=== PATIENT | female | born 1995 | race Caucasian/White ===

== ENCOUNTER 2025-01-14 12:20 | Outpatient (CLI) | payer MEDICAID ==
[2025-01-14 13:11] LABS: Basophils # (A) 0.03 10*3/uL (0.00-0.10); Basophils % (A) 0.3 %; Eosinophils # (A) 0.27 10*3/uL (0.04-0.35); Eosinophils % (A) 2.4 %; HCT 35.8 % (37.2-46.3); HGB 12.4 g/dL (12.0-15.0); Lymphocytes # (A) 1.57 10*3/uL (0.90-5.00); Lymphocytes % (A) 13.7 %; MCH 28.9 pg (27.0-32.0); MCHC 34.6 g/dL (32.0-37.0); MCV 83.4 fL (80.0-97.0); Monocytes # (A) 0.65 10*3/uL (0.20-1.00); Monocytes % (A) 5.7 %; Neutrophils # (A) 8.86 10*3/uL (1.80-7.70); Neutrophils % (A) 77.3 %; Platelet Count 176 10*3/uL (140-440); RBC 4.29 10*6/uL (4.10-5.20); RDW 12.8 % (11.5-14.5); WBC 11.45 10*3/uL (4.50-10.00)
[2025-01-14 13:18] LABS: Bilirubin,Urine Negative (Negative); Blood,Urine Negative (Negative); Color,Urine Colorless; Glucose,Urine (UA) Negative (Negative); Ketones,Urine Negative (Negative); Leukocyte Esterase,Urine Negative (Negative); Nitrite,Urine Negative (Negative); PH, Urine 6.0 (5.0-8.0); Protein,Urine Negative (Negative); Specific Gravity,Urine 1.006 (1.001-1.035); Urobilinogen,Urine <2.0 mg/dL (<2.0)
[2025-01-14 13:24] LABS: ALT 14 U/L (4-34); AST 29 U/L (14-36); African American GFR (CKD) >90 (>60 ml/min/1.73 sqM); Blood Urea Nitrogen 15 mg/dL (7-17); Non-African American GFR(CKD) >90 (>60 ml/min/1.73 sqM); Uric Acid 5.4 mg/dL (3.7-7.4)
[2025-01-14 13:36] LABS: Protein/Creatinine Ratio,Urine 0.429
== END 2025-01-14 14:43 ==
LOC: FBPOP 12:20
PROVIDERS: ATTEND Obstetrics & Gynecology
CPT/HCPCS: 36415; 59025; 81003; 82565; 82570; 84156; 84450; 84460; 84520; 84550; 85025